=== PATIENT | male | born 1975 | race Caucasian/White ===

== ENCOUNTER 2016-10-19 01:55 | Emergency (ER) | payer MEDICARE ==
[~2016-10-19] VITALS: Ht 180.3 cm; Wt 92.6 kg
[2016-10-19] MEDS ORDERED: RISPERIDONE 2 MG TABLET PO SCH (02:30)
[2016-10-19] MEDS ORDERED: RISP2TAB3 PO (02:54)
[2016-10-19] MEDS ORDERED: BENZ2AMP4 PO (02:55)
[2016-10-19 03:03] VITALS: BP 138/68
== END 2016-10-19 03:06 | disposition home or self-care (01) ==
LOC: ED 02:52
DX: F31.9 Bipolar disorder, unspecified (principal); R44.0 Auditory hallucinations
CPT/HCPCS: 99284

== ENCOUNTER 2016-10-28 19:03 | Emergency (ER) | payer MEDICARE ==
[~2016-10-28] VITALS: Ht 180.3 cm; Wt 96.1 kg
[~2016-10-28 19:03] MED LIST: BENZ2AMP4 PO; RISP2TAB3 PO
[2016-10-28 19:07] VITALS: BP 129/85
[2016-10-28] MEDS ORDERED: IBUPROFEN 200 MG TABLET PO ONE (19:30)
[2016-10-28] MEDS ORDERED: ACETAMINOPHEN 325 MG TABLET PO ONE (19:30)
[2016-10-28] MEDS ORDERED: IBUPROFEN 200 MG TABLET ONE (19:33)
[2016-10-28] MEDS ORDERED: ACETAMINOPHEN 325 MG TABLET ONE (19:33)
== END 2016-10-28 19:43 | disposition home or self-care (01) ==
LOC: ED 19:12
DX: Z76.0 Encounter for issue of repeat prescription (principal); G89.29 Other chronic pain; M25.561 Pain in right knee; F31.9 Bipolar disorder, unspecified
CPT/HCPCS: 99283

== ENCOUNTER 2016-11-04 21:58 | Emergency (ER) | payer MEDICARE ==
[~2016-11-04] VITALS: Ht 180.3 cm; Wt 102.4 kg
[2016-11-04 22:00] VITALS: BP 132/82
== END 2016-11-05 00:57 | disposition home or self-care (01) ==
LOC: ED 23:49
DX: F23 Brief psychotic disorder (principal); R44.3 Hallucinations, unspecified; F31.9 Bipolar disorder, unspecified; F17.200 Nicotine dependence, unspecified, uncomplicated
CPT/HCPCS: 99284

== ENCOUNTER 2016-11-12 05:12 | Emergency (ER) | payer MEDICARE ==
[~2016-11-12] VITALS: Ht 180.3 cm; Wt 96.7 kg
[2016-11-12 05:16] VITALS: BP 118/77
[2016-11-12] MEDS ORDERED: RISP2TAB3 PO (06:05)
== END 2016-11-12 06:07 | disposition home or self-care (01) ==
LOC: ED 05:40
DX: F32.3 Major depressive disorder, single episode, severe with psychotic features (principal); Z59.0 Homelessness
CPT/HCPCS: 93005; 99284

== ENCOUNTER 2016-12-16 18:34 | Emergency (ER) | payer MEDICARE ==
[~2016-12-16] VITALS: Ht 180.3 cm; Wt 100.3 kg
[2016-12-16 18:37] VITALS: BP 135/85
== END 2016-12-16 19:48 | disposition home or self-care (01) ==
LOC: ED 19:26
DX: S00.83XA Contusion of other part of head, initial encounter (principal); I10 Essential (primary) hypertension; F17.200 Nicotine dependence, unspecified, uncomplicated; Y08.89XA Assault by other specified means, initial encounter; Y93.89 Activity, other specified; Y92.89 Other specified places as the place of occurrence of the external cause; Y99.9 Unspecified external cause status
CPT/HCPCS: 99283